=== PATIENT | male | born 1945 | race Caucasian/White ===

== ENCOUNTER → 2019-02-16 | Outpatient (CLI) | payer MEDICARE ==
[~2019-02-16] MED LIST: AMLODIPINE10 MG PO; LISINOPRIL/HCTZ1 TA1 PO; ZANTAC 7575 MG PO
== END ==
LOC: COL.RAD 14:10
DX: N18.3 Chronic kidney disease, stage 3 (moderate) (principal)

== ENCOUNTER → 2020-08-10 | Outpatient (CLI) | payer OTHER | LOC: COL.RAD 13:11 | DX: J43.9 Emphysema, unspecified (principal); I25.10 Atherosclerotic heart disease of native coronary artery without angina pectoris; J92.9 Pleural plaque without asbestos; Z87.891 Personal history of nicotine dependence; R91.1 Solitary pulmonary nodule ==